=== PATIENT | male | born 2005 | race Two or more races ===

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

== ENCOUNTER 2023-05-31 03:38 | Emergency (ER) | payer MEDICAID ==
[~2023-05-31] VITALS: Ht 170.2 cm; Wt 93.0 kg
[2023-05-31] MEDS ORDERED: IBUPROFEN 400 MG TABLET ONE (04:13)
[2023-05-31] MEDS ORDERED: IBUPROFEN 400 MG TABLET PO ONE (04:30)
[2023-05-31 05:35] VITALS: BP 132/76; TEMP 98; O2SAT 99
== END 2023-05-31 05:36 | disposition home or self-care (01) ==
LOC: ER 03:45
DX: J06.9 Acute upper respiratory infection, unspecified (principal); J45.909 Unspecified asthma, uncomplicated; Z20.822 Contact with and (suspected) exposure to COVID-19
CPT/HCPCS: 99283; 87426; 87804 ×2; 87880; C9803; 86403-TC

== ENCOUNTER 2023-12-04 19:32 | Emergency (ER) | payer MEDICAID ==
[~2023-12-04] VITALS: Ht 172.7 cm; Wt 74.8 kg
[2023-12-04 20:11] VITALS: BP 144/91; TEMP 98.6; O2SAT 97
== END 2023-12-04 20:32 | disposition home or self-care (01) ==
LOC: ER 19:34
DX: J06.9 Acute upper respiratory infection, unspecified (principal); J45.909 Unspecified asthma, uncomplicated

== ENCOUNTER 2023-12-07 13:28 | Emergency (ER) | payer MEDICAID ==
[~2023-12-07] VITALS: Ht 172.7 cm; Wt 68.0 kg
[2023-12-07 14:20] VITALS: O2SAT 99
[2023-12-07] MEDS: IPRATROPIUM NEB FS 0.5 MG/2.5 ML AMPUL.NEB NEB ONE (14:23)
[2023-12-07] MEDS: ALBUTEROL FS 2.5 MG/3 ML VIAL.NEB NEB ONE (14:23)
[2023-12-07] MEDS ORDERED: ALBUTEROL FS 2.5 MG/3 ML VIAL.NEB ONE (14:25)
[2023-12-07] MEDS ORDERED: IPRATROPIUM NEB FS 0.5 MG/2.5 ML AMPUL.NEB ONE (14:25)
[2023-12-07] MEDS: GUAIFENESIN/D-METHORPHAN HB 5 ML UDC PO ONE (14:30)
[2023-12-07 14:52] LABS: BASOPHILS % (AUTO) 0.3 % (0.0-2.0); EOSINOPHILS # (AUTO) 0.2 K/uL (0.0-0.7); EOSINOPHILS % (AUTO) 2.9 % (0.0-6.0); HEMATOCRIT 44 % (39-51); HEMOGLOBIN 14.9 g/dL (13.5-17.5); LYMPHOCYTES # (AUTO) 1.7 K/uL (0.8-4.8); LYMPHOCYTES % (AUTO) 23.3 % (20.0-44.0); MEAN CORPUSCULAR HEMOGLOBIN 31 PG (26.0-33.0); MEAN CORPUSCULAR HGB CONC 34 g/dl (31.0-36.0); MEAN CORPUSCULAR VOLUME 92 fL (80-96); MONOCYTES # (AUTO) 0.7 K/uL (0.1-1.30); NEUTROPHILS # (AUTO) 4.8 K/uL (1.8-8.9); NEUTROPHILS % (AUTO) 64.5 % (43.0-81.0); PLATELET COUNT (AUTO) 242 K/uL (150-450); RED BLOOD CELL COUNT(AUTO) 4.77 MIL/uL (4.5-6.0); RED CELL DISTRIBUTION WIDTH 13.4 % (11.5-15.0); WHITE BLOOD COUNT (AUTO) 7.4 K/uL (4.3-11.0)
[2023-12-07 15:16] LABS: ALANINE AMINOTRANSFERASE 33 U/L (12-78); ALBUMIN 3.9 g/dL (3.4-5.0); ALKALINE PHOSPHATASE 45 U/L (46-116); ASPARTATE AMINOTRANSFERASE 14 U/L (15-37); BILIRUBIN,DIRECT 0.2 mg/dL (0.0-0.2); BILIRUBIN,TOTAL 0.9 mg/dL (0.2-1.0); CALCIUM, SERUM 9.9 mg/dL (8.5-10.1); CARBON DIOXIDE 29 mmol/L (21-32); CHLORIDE 102 mmol/L (98-107); CREATININE 0.7 mg/dL (0.6-1.3); GLUCOSE 85 mg/dL (74-106); POTASSIUM 4.3 mmol/L (3.5-5.1); SODIUM SERUM 139 mmol/L (136-145); UREA NITROGEN, BLOOD 15 mg/dL (7-18)
[2023-12-07 15:25] VITALS: O2SAT 100
[2023-12-07] MEDS ORDERED: GUAIFENESIN/D-METHORPHAN HB 5 ML UDC ONE (15:58)
[2023-12-07] MEDS ORDERED: PRED50TA PO (16:28)
[2023-12-07] MEDS ORDERED: BENZ-13 PO (16:28)
[2023-12-07] MEDS ORDERED: ALBU18HF2 INH (16:28)
[2023-12-07] MEDS ORDERED: predniSONE 20 MG TABLET ONE (16:38)
[2023-12-07] MEDS: predniSONE 50 MG TABLET PO ONE (16:38)
[2023-12-07 16:53] VITALS: BP 122/70; TEMP 98.3; O2SAT 100
== END 2023-12-07 16:54 | disposition home or self-care (01) ==
LOC: ER 13:31
DX: R05.9 Cough, unspecified (principal); R06.02 Shortness of breath; R07.89 Other chest pain; J45.909 Unspecified asthma, uncomplicated; Z87.39 Personal history of other diseases of the musculoskeletal system and connective tissue; Z20.822 Contact with and (suspected) exposure to COVID-19
CPT/HCPCS: 99285; 71045; 87426; 93005; 87804 ×2; 85025; 80048; 87070; 80076; 85378; 36415; 87880; 84484; 94644; J7512; 86403-TC

== ENCOUNTER 2024-02-25 11:19 | Emergency (ER) | payer MEDICAID ==
[~2024-02-25] VITALS: Ht 170.2 cm; Wt 83.9 kg
[~2024-02-25 11:19] MED LIST changes: +ALBU18HF2 INH; +BENZ-13 PO; +PRED50TA PO
[2024-02-25 11:24] VITALS: BP 121/55; TEMP 99.4
[2024-02-25] MEDS ORDERED: IBUP-1955 PO (12:10)
[2024-02-25] MEDS ORDERED: AMOX-430 PO (12:10)
[2024-02-25] MEDS ORDERED: KETOROLAC TROMETHAMINE 15 MG/ML VIAL ONE (12:13)
[2024-02-25] MEDS: KETOROLAC TROMETHAMINE 15 MG/ML VIAL IM ONE (12:22)
[2024-02-25 12:28] VITALS: O2SAT 98
== END 2024-02-25 12:29 | disposition home or self-care (01) ==
LOC: ER 11:25
DX: J02.9 Acute pharyngitis, unspecified (principal); J40 Bronchitis, not specified as acute or chronic; Z79.1 Long term (current) use of non-steroidal anti-inflammatories (NSAID); Z79.52 Long term (current) use of systemic steroids; Z79.899 Other long term (current) drug therapy
CPT/HCPCS: 99283; 96372; 87070; 87880; J1885; 86403-TC

== ENCOUNTER 2024-03-11 13:59 | Emergency (ER) | payer SELFPAY ==
[~2024-03-11] VITALS: Ht 170.2 cm; Wt 86.2 kg
[~2024-03-11 13:59] MED LIST changes: +AMOX-430 PO; +IBUP-1955 PO
[2024-03-11 14:10] VITALS: BP 131/74; TEMP 98.3; O2SAT 98
[2024-03-11] MEDS ORDERED: IBUPROFEN 400 MG TABLET ONE (14:35)
[2024-03-11] MEDS: IBUPROFEN 400 MG TABLET PO ONE (14:36)
== END 2024-03-11 17:19 | disposition home or self-care (01) ==
LOC: ER 14:11
DX: S93.492A Sprain of other ligament of left ankle, initial encounter (principal); J45.909 Unspecified asthma, uncomplicated; Z87.39 Personal history of other diseases of the musculoskeletal system and connective tissue; W10.8XXA Fall (on) (from) other stairs and steps, initial encounter; Y93.89 Activity, other specified; Y92.89 Other specified places as the place of occurrence of the external cause; Y99.8 Other external cause status
CPT/HCPCS: 73610-TC

== ENCOUNTER 2024-03-24 20:25 | Emergency (ER) | payer MEDICAID ==
[~2024-03-24] VITALS: Ht 170.2 cm; Wt 88.5 kg
[2024-03-24 20:35] VITALS: BP 137/65; TEMP 98.5; O2SAT 99
[2024-03-24] MEDS ORDERED: IBUP-1955 PO (21:09)
[2024-03-24] MEDS ORDERED: ACET-2605 PO (21:09)
== END 2024-03-24 21:58 | disposition home or self-care (01) ==
LOC: ER 21:09
DX: M72.2 Plantar fascial fibromatosis (principal); M79.672 Pain in left foot; J45.909 Unspecified asthma, uncomplicated; Z87.39 Personal history of other diseases of the musculoskeletal system and connective tissue

== ENCOUNTER 2024-04-08 21:41 | Emergency (ER) | payer MEDICAID ==
[~2024-04-08] VITALS: Ht 175.3 cm; Wt 77.1 kg
[~2024-04-08 21:41] MED LIST changes: +ACET-2605 PO
[2024-04-09 01:36] VITALS: BP 124/73; TEMP 98.4; O2SAT 98
== END 2024-04-09 01:36 | disposition home or self-care (01) ==
LOC: ER 21:44
DX: S49.82XA Other specified injuries of left shoulder and upper arm, initial encounter (principal); J45.909 Unspecified asthma, uncomplicated; Z87.39 Personal history of other diseases of the musculoskeletal system and connective tissue; X58.XXXA Exposure to other specified factors, initial encounter; Y93.89 Activity, other specified; Y92.89 Other specified places as the place of occurrence of the external cause; Y99.8 Other external cause status
CPT/HCPCS: 73030-TC